=== PATIENT | female | born 1955 | race Caucasian/White ===

== ENCOUNTER 2016-06-09 06:10 | Day surgery (SDC) | payer OTHER ==
[2016-06-08 09:51] VITALS: BMI 43.0
--- NOTE | 2016-06-08 21:05 | PREOPHP ---
DATE OF ADMISSION: 06/09/2016 HISTORY OF PRESENT ILLNESS: This is a 61-year-old lady, 8, para 7 and 1 spontaneous abortio n. Her last normal menstrual period was at the age of 55. She was admitted for D and C, hysterosco py, possible suction curettage. This patient had an ultrasound done, and the ultrasound revealed en dometrial thickening of 7 mm. Endometrial biopsy was attempted, but the cervix was stenotic, so bio psy could not be done, so she was admitted for the above procedure. The procedure was explained to the patient, and she understood everything totally. The risks, benefits and alternatives were discu ssed with her as well. PAST PERSONAL HISTORY: No history of TB, asthma nor allergy. The patient has a history of high blo od pressure, thyroid problem and hypercholesterolemia. SURGICAL HISTORY: She had eye surgery, hernia surgery, appendectomy, tubal ligation surgery and kne e surgery. FAMILY HISTORY: Mother has high blood pressure, and sister has high cholesterol. GYNECOLOGIC HISTORY: She had menarche at the age of 10, every 28 days interval, 3 to 4 days' durati on and moderate in amount. She is 6, para 7, all normal deliveries. REVIEW OF SYSTEMS: CARDIOVASCULAR: No chest pains. RESPIRATORY: No cough. GASTROINTESTINAL: No diarrhea, no vomiting. GENITOURINARY: No dysuria. PHYSICAL EXAMINATION: GENERAL: A conscious, coherent lady and in not acute distress. VITAL SIGNS: Her blood pressure 130/80, pulse rate 80 per minute, respirations 16 per minute. Weig ht 221 pounds, BMI of 43.16 for morbid obesity. BREASTS, HEART AND LUNGS: Within normal limits. ABDOMEN: Soft and obese. PELVIC: Cervix is ____. Uterus difficult to evaluate due to obesity. RECTAL: Exam confirmed the pelvic findings. EXTREMITIES: No pedal edema. ADMITTING DIAGNOSES: 1. Endometrial thickening, rule out endometrial hyperplasia. 2. Morbid obesity. PLAN: The patient was planned to have the above procedures. Dictated By: SUNG TEMPLE/KING Conf#: [id number] DID#: [id number]
[~2016-06-09] VITALS: Ht 165.1 cm; Wt 97.6 kg
[2016-06-09] VITALS (12 sets, daily range): BP systolic 117–152; BP diastolic 68–83; PULSE 65–80; RESP 16–22; Ht 165.1 cm; Wt 97.6 kg
[~2016-06-09 06:10] MED LIST: HTN MEDS
[2016-06-09] MEDS ORDERED: LISI20TA11 PO (07:56)
[2016-06-09] MEDS ORDERED: DICL75TA2 PO (07:56)
[2016-06-09] MEDS ORDERED: CYCL-319 PO ×2 (07:56→07:58)
[2016-06-09] MEDS ORDERED: SIMV10TA PO (07:59)
[2016-06-09] MEDS ORDERED: DOCU-159 PO (07:59)
[2016-06-09] MEDS ORDERED: OMEP40CA6 PO (08:00)
[2016-06-09] MEDS ORDERED: ERGO500037 PO (08:01)
[2016-06-09] MEDS ORDERED: PROPOFOL 20 ML ONE (08:21)
[2016-06-09] MEDS ORDERED: MIDAZOLAM 1 MG/ML 2 ML INJ ONE (08:21)
[2016-06-09] MEDS ORDERED: FENTAnyl 50 MCG/ML VIAL ONE (08:21)
[2016-06-09] MEDS ORDERED: METOCLOPRAMIDE 10 MG INJ ONE (08:21)
[2016-06-09] MEDS ORDERED: SODIUM CL BACTERIOSTATIC 30 ML INJ ONE (08:48)
[2016-06-09] MEDS ORDERED: ONDANSETRON 4 MG INJ IV PRN (09:00)
[2016-06-09] MEDS ORDERED: HYDROmorphONE (0.2 MG/ML) 10ML SYG IV PRN ×3 (09:00)
[2016-06-09] MEDS ORDERED: DIPHENHYDRAMINE 50 MG INJ IV PRN (09:00)
[2016-06-09] MEDS ORDERED: METOCLOPRAMIDE 10 MG INJ IV PRN (09:00)
[2016-06-09] MEDS ORDERED: MEPERIDINE 25 MG INJ IV PRN (09:00)
[2016-06-09] MEDS ORDERED: ACETAMINOPHEN 325 MG TAB PO PRN (09:30)
--- NOTE | 2016-06-09 12:20 | OPR ---
DATE OF OPERATION: 06/09/2016 PREOPERATIVE DIAGNOSIS: Rule out endometrial hyperplasia, endometrial thickening. POSTOPERATIVE DIAGNOSIS: Rule out endometrial hyperplasia, endometrial thickening. OPERATION PERFORMED: Attempted D and C, hysteroscopy, suction and curettage, but failed. SURGEON: Sung Alex MD ENTERPRISE ACCOUNT MANAGER: Philip marcelo. ANESTHESIA: General. ANESTHESIOLOGIST: Dr. Rojo OPERATIVE TECHNIQUE: Under general anesthesia, the patient was prepped and draped in the usual [facility] ion for vaginal surgery. Pelvic exam under anesthesia revealed the cervix to be all the way at the anterior vaginal wall and uterus could not be properly delineated due to obesity. The vagina was no eugene to be very, very deep and a long weighted speculum was used to expose the cervix. A long Adriana retractor was used to expose the cervix, and anterior lip of the cervix was grasped with a single t ooth tenaculum. Endocervical dilatation to the smallest one could not be done. The cervix was note d to be very, very stenotic, even the thumb could not be inserted. After many attempts, the procedu re was terminated. The cervix was, as mentioned, was very, very stenotic, so the procedure was term inated. The patient tolerated the procedure well. Vital signs were stable during and after the pro cedure. Dictated By: SUNG TEMPLE/KING Conf#: [id number] DID#: [id number]
== END 2016-06-09 11:18 | disposition home or self-care (01) ==
LOC: SDS 06:10
PROVIDERS: ATTEND Obstetrics & Gynecology
DX: R93.8 Abnormal findings on diagnostic imaging of other specified body structures (principal); I10 Essential (primary) hypertension; E66.9 Obesity, unspecified; Z68.35 Body mass index [BMI] 35.0-35.9, adult
CPT/HCPCS: 58558; 86850; 86900; 86901; J2250; J2765; J3010; Z7512; Z7610

== ENCOUNTER 2016-10-14 11:23 | Day surgery (SDC) | payer OTHER ==
[2016-10-14] VITALS (10 sets, daily range): BP systolic 87–105; BP diastolic 49–56; PULSE 67–72; RESP 12–18; Ht 152.4 cm; Wt 96.4 kg
[~2016-10-14] VITALS: Ht 152.4 cm; Wt 96.4 kg
[~2016-10-14 11:23] MED LIST changes: +CEFAZOLIN 1 GM INJ ONE; +CYCL-319 PO; +DICL75TA2 PO; +DOCU-159 PO; +ERGO500037 PO; -HTN MEDS; +LISI20TA11 PO; +OMEP40CA6 PO; +SIMV10TA PO
[2016-10-14] MEDS ORDERED: LACTATED RINGER'S 1,000 ML IV ONE (12:00)
[2016-10-14] MEDS ORDERED: ERGO2000 PO (12:04)
[2016-10-14] MEDS ORDERED: HYD25 PO (12:04)
[2016-10-14] MEDS ORDERED: FENTAnyl 50 MCG/ML VIAL ONE (14:11)
[2016-10-14] MEDS ORDERED: PROPOFOL 20 ML ONE (14:11)
[2016-10-14] MEDS ORDERED: MIDAZOLAM 1 MG/ML 2 ML INJ ONE (14:11)
--- NOTE | 2016-10-14 14:23 | HP ---
Date/Time of Note Date/Time of Note DATE: 10/14/16 TIME: 14:19 Assessment/Plan VTE Prophylaxis VTE Prophylaxis Intervention: ambulation Lines/Catheters IV Catheter Type (from Nrs): Peripheral IV Assessment/Plan Assessment/Plan post menopausal enlarged uterus , and Hx of spotting? will do hysteroscopy and Fx D&C HPI/ROS Admit Date/Time Admit Date/Time Hx of Present Illness 61 y/o female sent in for D4C because of "enlarged" uterus ROS Constitutional: improved, no complaints Eyes: no complaints ENT: no complaints Respiratory: no complaints Cardiovascular: no complaints Gastrointestinal: no complaints Genitourinary: no complaints Musculoskeletal: no complaints Skin: no complaints Neurologic: no complaints Endocrine: no complaints Lymphatic: no complaints Psychological: nl mood/affect, no complaints Immunologic: no complaints PMH/Family/Social Past Medical History HTN , Past Surgical History meniscus and lipoma on forearm Family History Significant Family History: no pertinent family hx Social History Alcohol Use: none Smoking Status: Never smoker Drug Use: none Exam/Review of Systems Vital Signs Vitals Vital Signs Date Time Temp Pulse Resp B/P Pulse Ox O2 Delivery O2 Flow Rate FiO2 10/14/16 11:45 98.3 72 18 105/56 100 Room Air Exam Exam abdomen: soft Constitutional: alert, oriented, well developed Psych: nl mood/affect, no complaints Head: atraumatic, normocephalic Eyes: EOMI, PERRL, nl conjunctiva, nl lids, nl sclera ENMT: nl external ears & nose, nl lips & teeth, nl nasal mucosa & septum Neck: non-tender, supple Respiratory: clear to auscultation, normal air movement Cardiovascular: nl pulses, regular rate and rhythm Gastrointestinal: nl liver, spleen, non-tender, soft Genitourinary - Female: uterus (enlarged 10 weeks size) Musculoskeletal: nl extremities to inspection Extremities: normal pulses Neurological: EMPLOYMENT MANAGER II-XII intact, nl mental status, nl speech, nl strength Skin: nl turgor, No rash or lesions Lymph: nl lymph nodes Medications Medications Current Medications Lactated Ringer's (Lr) 1,000 ml @ 125 mls/hr Q8H ONCE IV ; Start 10/14/16 at 12: 00; Stop 10/14/16 at 19:59 SHAHBAZ RAY MD Oct 14, 2016 14:23
[2016-10-14] MEDS ORDERED: PHENYLephrine (100 MCG/ML) 5ML SYG ONE (14:31)
[2016-10-14] MEDS ORDERED: METOCLOPRAMIDE 10 MG INJ ONE (14:53)
[2016-10-14] MEDS ORDERED: ONDANSETRON 4 MG INJ ONE (14:53)
[2016-10-14] MEDS ORDERED: KETOROLAC 30 MG INJ ONE (14:53)
[2016-10-14] MEDS ORDERED: DEXAMETHASONE 4 MG/ML 1 ML INJ ONE (14:53)
--- NOTE | 2016-10-14 16:01 | OPR ---
DATE OF OPERATION: 10/14/2016 PREOPERATIVE DIAGNOSES: Endometrial thickening. POSTOPERATIVE DIAGNOSES: Endometrial thickening. PROCEDURE PERFORMED: Operation was aborted. PROCEDURE IN DETAIL: Patient was placed on the OR table in supine position. General anesthesia was induced. The patient was taken to lithotomy position. Perineal and vaginal area were prepped, drap ed for usual vaginal procedure. Under satisfactory anesthesia, a bivalve speculum was inserted into vagina. Cervix appeared to be highly atrophic with the cervical meatus appearing in the middle. A n attempt to progress a dilator inside the cervix remained highly unsuccessful. Laminaria dilators were also attempted without any avail and the cervix remained unable to push the laminaria dilator i nside the cervix. At this point, decision was made to abort the procedure. The patient was returne d to supine position carefully and was transferred to postanesthesia recovery room in good condition . This service intends to follow the patient or refer the patient to [facility] oncologist to proceed with further surgery if needed. Dictated By: SHAHBAZ TERRY/KING Conf#: [id number] DID#: [id number]
== END 2016-10-14 16:40 | disposition home or self-care (01) ==
LOC: SDS 11:23
PROVIDERS: ATTEND Obstetrics & Gynecology
DX: R93.8 Abnormal findings on diagnostic imaging of other specified body structures (principal)
CPT/HCPCS: 58558; J0690; J1100; J1885; J2250; J2405; J2765; J3010; Z7512; Z7610; J2370

== ENCOUNTER 2017-11-03 06:02 | Day surgery (SDC) | END 2017-11-03 10:35 | disposition home or self-care (01) ==